=== PATIENT | male | born 1945 | race Caucasian/White ===

== ENCOUNTER 2023-06-17 12:38 | Emergency (ER) | payer MEDICARE, SELFPAY ==
[2023-06-17 12:40] VITALS: BP 170/80; PULSE 72; RESP 16; TEMP 36.8; O2SAT 97; BMI 20.9
--- NOTE | 2023-06-17 12:58 | HMH.EDGENADL ---
Discharge Plan Disposition Patient Disposition: Home, Self-Care Condition: Good Prescriptions Prescriptions: New amoxicillin-pot clavulanate 875-125 mg tablet 1 tab PO BID Qty: 20 0RF Referrals Follow up/Referrals: Provider,Referral, MD [Referring] - See instructions Activity Restrictions/Add. Instructions Additional Instructions/Restrictions: You were evaluated in the emergency department today. Please brick picker your prescription for antibiotics and take the full course of prescribed. Follow-up with your primary care provider over the next 48 hours for wound reassessment. Return to the emergency department for any new or worsening symptoms, such as fevers, chills, significant increase in redness and pain, or pus draining from the wound. Clinical Impressions Clinical Impression: Dog bite of right lower leg Qualifiers: Encounter type: initial encounter Qualified Code(s): S81.851A - Open bite, right lower leg, initial encounter Instructions Patient Instructions: DI for Dog Bite Discharge ED Provider: Maranda Raymond General Adult HPI General Chief complaint: Wound/Laceration Stated complaint: dog bite on Rt leg Time Seen by Provider: 06/17/23 12:42 History of Present Illness HPI narrative: This patient is a 77-year-old male presenting to the emergency department for evaluation with concern for a wound to his anterior right lower leg. He reports that he was playing with his dog a week and a half ago, kicking a milk jug around for him to caitlyn, when he accidentally hit the dog in the mouth with his right mondragon. He suffered a wound to the right mondragon from the dog's teeth. The wound has progressively turned more red and has been slow to heal, so he decided to admit to the emergency department for evaluation with concern that he may have an infection. He denies any fevers, chills, or other concerns. He is still ambulatory without difficulty and denies any numbness or tingling. Related Data Previous Rx's Medication Instructions Recorded amoxicillin 875 mg-potassium 1 tab PO BID #20 tabs 06/17/23 clavulanate 125 mg tablet Allergies Allergy/AdvReac Type Severity Reaction Status Date / Time No Known Allergies Allergy Verified 06/17/23 13:05 [facility] Disclaimer: The information contained in this section may have been updated after the patient was seen, as this information can be updated by other users. Social History Smoking Status: Current every day smoker alcohol intake: never current occupational status: retired Travel in the last 8 weeks: None ROS Obtained: Yes All systems reviewed & no additional complaints except as documented 14 point review of systems obtained and negative except as mentioned in HPI. Physical Exam General General appearance: alert and in no apparent distress Comment: Not ill-appearing Head Head exam: atraumatic and normocephalic Eye Eye exam: Present normal appearance, PERRL and EOMI ENT ENT exam: Present normal exam, normal oropharynx and mucous membranes moist Neck Neck exam: Present normal inspection, full ROM and trachea midline; Absent tenderness Chest Chest inspection: Present normal inspection and symmetric chest wall rise; Absent tenderness Respiratory Respiratory exam: Present normal lung sounds bilaterally; Absent respiratory distress or wheezes Cardiovascular Cardiovascular exam: Present regular rate and normal rhythm Abdominal Exam Abdominal exam: Present soft; Absent distention, tenderness or guarding Extremities Exam Extremities exam: Present full ROM and normal capillary refill; Absent tenderness or edema Back Exam Back exam: Present normal inspection and full ROM; Absent tenderness Neurological Exam Neurological exam: Present alert, oriented X3 and CN II-XII intact; Absent motor sensory deficit Psychiatric Psychiatric exam: Present normal affect and normal mood Skin Skin exam: Present warm
--- NOTE | 2023-06-17 13:08 | PC.NURSE ---
asked ER MD cevallos if blood cultures were need prior to antibiotic administration, states no.
[2023-06-17 13:14] VITALS: BP 162/70; PULSE 74; O2SAT 98
[2023-06-17 13:21] LABS: Basophils % 0.3 % (0.1-2.0); Eosinophils # 0.2 K/mm3 (0.0-0.4); Hematocrit 38.2 % (42.0-52.0); Hemoglobin 12.3 g/dL (14.1-18.0); Lymphocytes # 1.2 K/mm3 (0.7-4.5); Lymphocytes % 14.9 % (10-50); Mean Corpuscular HGB Conc 32.2 g/dL (31.8-35.4); Mean Corpuscular Volume 105.5 fl (80-94); Monocytes # 0.6 K/mm3 (0.1-1.0); Monocytes % 7.3 % (1.7-9.3); Neutrophils # 6.1 K/mm3 (1.8-7.8); Neutrophils % 75.5 % (37.0-80.0); Platelet Count 182 K/mm3 (142-424); Red Blood Count 3.62 M/mm3 (4.60-6.20); Red Cell Distribution Width 14.2 % (11.5-17.5); White Blood Count 8.1 K/mm3 (4.8-10.8)
[2023-06-17 13:30] VITALS: BP 143/66; PULSE 71; O2SAT 96
[2023-06-17 13:32] LABS: Anion Gap 11.5 mEq/L (5-15); Blood Urea Nitrogen 13 mg/dl (9-20); Calcium 9.3 mg/dl (8.4-10.2); Carbon Dioxide 25 mmol/L (22.0-30.0); Chloride 105 mmol/L (98-107); Creatinine Clearance Estimated 61 mL/min (50-200); Estimated Glomerular Filt Rate 73 ml/min (>60); GFR (African American) 88 ML/MIN (>60); Glucose 112 mg/dl (74-100); Potassium 4.5 mmoL/L (3.5-5.1); Sodium 137 mmol/L (136-145)
[2023-06-17 14:12] VITALS: BP 134/80; PULSE 86; RESP 16; TEMP 36.6; O2SAT 96
== END 2023-06-17 14:16 | disposition home or self-care (01) ==
PROVIDERS: Emergency Provider Emergency Medicine; PCP Internal Medicine
DX: S81.851A Open bite, right lower leg, initial encounter (principal); W54.8XXA Other contact with dog, initial encounter; F17.200 Nicotine dependence, unspecified, uncomplicated
CPT/HCPCS: 80048; 85025; 96374; 99284

== ENCOUNTER 2024-11-07 12:24 | Emergency (ER) | payer MEDICARE, OTHER, SELFPAY ==
[2024-11-07 12:25] VITALS: BP 185/99; PULSE 68; RESP 18; TEMP 36.7; O2SAT 98; BMI 21.9
[2024-11-07 12:32] VITALS: BP 185/99; PULSE 67; O2SAT 99
--- NOTE | 2024-11-07 12:34 | ED_ITS ---
<Statement entered by Rajendra Silver MD - 11/07/24 15:05> I was consulted by the MARIELA, and we discussed the complexity of the problems being addressed. I approved the treatment and management plan for this patient's care in the emergency department, thus performing a substantive portion of the medical decision making. Rajendra Silver MD, GUERO, FACEP Discharge Plan Disposition Patient Disposition: Home, Self-Care Condition: Good Prescriptions Prescriptions: No Action amoxicillin-pot clavulanate 875-125 mg tablet 1 tab PO BID Qty: 20 0RF Referrals Follow up/Referrals: Marilee Burrell MD [Primary Care Provider] - See instructions Piper Nicole DPM [Staff Physician] - See instructions (onychomycosis) Activity Restrictions/Add. Instructions Additional Instructions/Restrictions: As we discussed please leave the bandage in place for 24 hours. If you notice bleeding you can take the bandage down and reapply the clotting agent that I gave you. I have referred you to podiatry. Please call tomorrow to make your appointment. For any change or worsening of your symptoms follow-up with your PCP or return to the ER as needed. Clinical Impressions Clinical Impression: Avulsion of toenail of left foot Instructions Patient Instructions: DI for Laceration Repair Print Language Print Language: [place] Discharge ED Provider: Rajendra Silver General Adult HPI General Chief complaint: Wound/Laceration Stated complaint: AO 11/04, right foot lac Time Seen by Provider: 11/07/24 12:29 History of Present Illness HPI narrative: Patient presents for evaluation of a left great toe nailbed injury. Patient has significantly thickened toenails. He was cutting his right hallux nail with wire cutters last Friday and he got into the matrix of the nailbed. It has been bleeding ever since despite efforts. Patient is on Plavix. He denies any numbness or tingling redness swelling or pain Related Data Previous Rx's ?Medication ?Instructions ?Recorded amoxicillin 875 mg-potassium 1 tab PO BID #20 tabs 06/17/23 clavulanate 125 mg tablet Allergies Allergy/AdvReac Type Severity Reaction Status Date / Time No Known Allergies Allergy Verified 06/17/23 13:05 [facility] Disclaimer: The information contained in this section may have been updated after the patient was seen, as this information can be updated by other users. Social History (Updated 06/17/23 @ 16:01 by Maranda Raymond DO) Smoking Status: Current every day smoker alcohol intake: never current occupational status: retired Travel in the last 8 weeks: None Have you lived/traveled outside [place] in past 30 days?: No Contact w/someone who lives/traveled outside [place] past 30 days?: No Exposure to someone with infectious disease in past 14 days?: No Do you have a fever (greater than 100.4 F or 38 C)?: No Have you tested positive for COVID-19: No Exposed to someone with COVID-19 in past 14 days?: No Do you have a sore throat?: No Do you have a cough?: No Do you have any weakness?: No Do you have any diarrhea?: No Are you experiencing any unusual bleeding?: No Do you have any muscle aches/pain?: No Do you have any abdominal pain?: No Are you experiencing loss of taste or smell?: No ROS Obtained: Yes Systems reviewed as appropriate & no additional complaints except as documented Physical Exam General General appearance: alert and in no apparent distress Respiratory Respiratory exam: Present normal lung sounds bilaterally Cardiovascular Cardiovascular exam: Present regular rate Neurological Exam Neurological exam: Present alert and oriented X3 Medical Decision Making Medical Records Screening: Per USPSTF and CDC recommendations, given the prevalence of disease in our region, it is our hospital?s policy to screen for HIV and viral Hepatitis for all patients aged 18 and over and those with ongoing risk factors. Kyle Inquiry Pt receiving controlled substance: No Vital Signs: 11/07/24 12:25 11/07/24 12:32 Temperature 98.0 F Temperature Source Oral Pulse Rate 67 Pulse Rate [Radial] 68 Respiratory Rate 18 Blood Pressure 185/99 H Blood Pressure [Right Arm] 185/99 H Blood Pressure Mean [Right Arm] 127 Blood Pressure Source [Right Arm] Automatic Cuff Blood Pressure Position [Right Arm] Sitting 02 Sat by Pulse Oximetry 98 99 Oxygen Delivery Method Room Air Room Air Orders (Tests/Meds): ED MEDICATIONS Discontinued Medications Generic Name Dose Route Start Last Admin Trade Name Freq PRN Reason Stop Dose Admin Silver Nitrate 1 each 11/07/24 12:45 11/07/24 13:22 Silver Nitrate Applicator TP 11/07/24 12:46 1 each ONCE ONE Administration Medical Decision Narrative: In summary patient is a 79-year-old male who presents to the emergency department for evaluation of right hallux nailbed injury. Patient is hemodynamically stable upon arrival, afebrile. Physical exam is remarkable for a venous ooze right in the middle of the exposed nailbed matrix. Differential diagnosis could include arterial versus venous however there are no red flags to suggest otherwise including no pulsatile bleeding.. Initial workup was considered however it is very superficial thus no further workup is necessary. Initial intervention is to clean the affected area prior to cautery. Given that I personally cauterized the small bleeding vessel with silver nitrate. Hemostasis was achieved. Reassessment 15 minutes later shows that it is still hemostatic. Patient was able to bear weight without rebleed. Given that I placed Surgicel over the area and then protectively bandaged it. Given that patient is appropriate for discharge with referral to podiatry for ongoing management strict return precautions. Critical Care Critical Care Time Critical Care Time: No
[2024-11-07] MEDS: SILVER NITRATE APPLICATOR 1 EACH TP (13:22)
[2024-11-07 13:26] VITALS: BP 149/88; PULSE 88; RESP 18; TEMP 36.7; O2SAT 100
== END 2024-11-07 13:26 | disposition home or self-care (01) ==
PROVIDERS: Emergency Provider Student in an Organized Health Care Education/Training Program; PCP Internal Medicine
DX: S91.202A Unspecified open wound of left great toe with damage to nail, initial encounter (principal); M79.675 Pain in left toe(s); W45.8XXA Other foreign body or object entering through skin, initial encounter; Y93.89 Activity, other specified; Y92.9 Unspecified place or not applicable
CPT/HCPCS: 99283

== ENCOUNTER 2025-01-28 15:06 | Emergency (ER) | payer MEDICARE, OTHER, SELFPAY ==
[2025-01-28] VITALS (14 sets, daily range): BP systolic 122–178; BP diastolic 67–100; PULSE 64–127; RESP 14–22; TEMP 36.6; O2SAT 92–100; BMI 22.3
--- NOTE | 2025-01-28 15:15 | HMH.EDCP ---
Discharge Plan Disposition Patient Disposition: Xfer Short-Term Hosp Condition: Fair Prescriptions Prescriptions: No Action amoxicillin-pot clavulanate 875-125 mg tablet 1 tab PO BID Qty: 20 0RF Referrals Follow up/Referrals: Provider,Referral, [Primary Care Provider] - See instructions Clinical Impressions Clinical Impression: Atrial fibrillation with rapid ventricular response Acute exacerbation of CHF (congestive heart failure) Qualifiers: Heart failure type: unspecified Qualified Code(s): I50.9 - Heart failure, unspecified Urinary tract infectious disease Qualifiers: Urinary tract infection type: site unspecified Hematuria presence: with hematuria Qualified Code(s): N39.0 - Urinary tract infection, site not specified Stand Alone Forms Stand Alone Forms: Transfer Record - ED Print Language Print Language: Sinhala Discharge ED Provider: Myron Engel HPI <LULY Rodriguez - Last Filed: 01/28/25 20:32> General Chief Complaint: Shortness of Breath/Dyspnea Stated Complaint: Chest Pain/SOA, Afib RVR Time Seen by Provider: 01/28/25 15:15 History of Present Illness HPI narrative: Patient presents for evaluation of shortness of breath along with chest pain. Patient gives a 3-day history of increasing dyspnea and today began having chest pain. Chest pain is diffuse but does not radiate. Patient does have a history of known atrial fibrillation however we do not have a medication list and patient does not know what. [facility] He reportedly states that he is on a blood thinner but is not sure the name. Patient [place] fever chills hemoptysis hematochezia melena nausea vomit diarrhea. Related Data Previous Rx's ?Medication ?Instructions ?Recorded amoxicillin 875 mg-potassium 1 tab PO BID #20 tabs 06/17/23 clavulanate 125 mg tablet Allergies Allergy/AdvReac Type Severity Reaction Status Date / Time No Known Allergies Allergy Verified 06/17/23 13:05 PFSH <LULY Rodriguez - Last Filed: 01/28/25 20:32> PFS Disclaimer: The information contained in this section may have been updated after the patient was seen, as this information can be updated by other users. Social History (Updated 06/17/23 @ 16:01 by Maranda Raymond DO) Smoking Status: Never smoker alcohol intake: never current occupational status: retired Travel in the last 8 weeks: None Have you lived/traveled outside US in past 30 days?: No Contact w/someone who lives/traveled outside US past 30 days?: No Exposure to someone with infectious disease in past 14 days?: No Do you have a fever (greater than 100.4 F or 38 C)?: No Have you tested positive for COVID-19: No Exposed to someone with COVID-19 in past 14 days?: No Do you have a sore throat?: No Do you have a cough?: No Do you have any weakness?: No Do you have any diarrhea?: No Are you experiencing any unusual bleeding?: No Do you have any muscle aches/pain?: No Do you have any abdominal pain?: No Are you experiencing loss of taste or smell?: No <LULY Rodriguez - Last Filed: 01/28/25 20:32> ROS Obtained: Yes Systems reviewed as appropriate & no additional complaints except as documented Physical Exam <LULY Rodriguez - Last Filed: 01/28/25 20:32> General General appearance: alert and in no apparent distress Respiratory Respiratory exam: Absent normal lung sounds bilaterally (Patient has diminished breath sounds at the bases has Rales in the bilateral lower lung kirby no accessory muscle use or increased work of breathing) Cardiovascular Cardiovascular exam: Present tachycardia and irregular rhythm Neurological Exam Neurological exam: Present alert and oriented X3 HEART Score <LULY Rodriguez - Last Filed: 01/28/25 20:32> HEART Score HEART Score assessment performed?: Yes History (anamnesis): Moderately suspicious ECG: Non-specific disturbance Age: >65 years Risk factors: Atherosclerosis history Troponin: </= normal limit HEART Score: 6 <Myron Engel MD - Last Filed: 01/28/25 23:35> HEART Score HEART Score: 6 Critical Care <LULY Rodriguez - Last Filed: 01/28/25 20:32> Critical Care Time Critical Care Time: Yes Attestation: On 01/28/25, the high probability of a clinically significant, sudden or life threatening deterioration of the following system(s) required my full and direct attention, intervention and personal management. The time I documented below is in addition to time spent performing reported procedures but includes the following listed in this critical care notation. Total Time Total Critical Care Time: 35 Medical Decision Making <LULY Rodriguez - Last Filed: 01/28/25 20:32> Medical Records Medical records reviewed: Yes I reviewed the patient's medical records. Kyle Inquiry Pt receiving controlled substance: No Vital Signs Vital Signs: 01/28/25 15:10 01/28/25 15:30 01/28/25 15:40 Temperature 97.9 F Temperature Source Oral Pulse Rate 107 H 65 Pulse Rate [Left Radial] 127 H Respiratory Rate 20 19 22 Blood Pressure 163/95 H 122/67 Blood Pressure [Right Arm] 160/96 H Blood Pressure Mean 104 93 Blood Pressure Mean [Right Arm] 117 Blood Pressure Source Blood Pressure Source [Right Arm] Automatic Cuff Blood Pressure Position Blood Pressure Position [Right Arm] Sitting 02 Sat by Pulse Oximetry 100 98 96 Oxygen Delivery Method Room Air 01/28/25 16:06 01/28/25 16:31 01/28/25 17:00 Temperature Temperature Source Pulse Rate 64 64 69 Pulse Rate [Left Radial] Respiratory Rate 18 18 18 Blood Pressure 138/83 145/77 H 146/80 H Blood Pressure [Right Arm] Blood Pressure Mean 100 96 88 Blood Pressure Mean [Right Arm] Blood Pressure Source Blood Pressure Source [Right Arm] Blood Pressure Position Blood Pressure Position [Right Arm] 02 Sat by Pulse Oximetry 92 L 92 L 93 L Oxygen Delivery Method 01/28/25 17:30 01/28/25 18:01 01/28/25 19:00 Temperature Temperature Source Pulse Rate 68 84 Pulse Rate [Left Radial] Respiratory Rate 16 16 14 Blood Pressure 157/87 H 164/92 H 159/99 H Blood Pressure [Right Arm] Blood Pressure Mean 94 116 Blood Pressure Mean [Right Arm] Blood Pressure Source Blood Pressure Source [Right Arm] Blood Pressure Position Blood Pressure Position [Right Arm] 02 Sat by Pulse Oximetry 97 97 Oxygen Delivery Method 01/28/25 19:24 01/28/25 20:00 01/28/25 20:30 Temperature Temperature Source Pulse Rate Pulse Rate [Left Radial] Respiratory Rate 16 Blood Pressure 174/100 H 161/83 H 147/91 H Blood Pressure [Right Arm] Blood Pressure Mean 112 120 Blood Pressure Mean [Right Arm] Blood Pressure Source Blood Pressure Source [Right Arm] Blood Pressure Position Blood Pressure Position [Right Arm] 02 Sat by Pulse Oximetry Oxygen Delivery Method 01/28/25 21:00 01/28/25 21:55 Temperature 97.9 F Temperature Source Oral Pulse Rate 113 H Pulse Rate [Left Radial] Respiratory Rate 16 Blood Pressure 171/96 H 178/100 H Blood Pressure [Right Arm] Blood Pressure Mean 121 Blood Pressure Mean [Right Arm] Blood Pressure Source Automatic Cuff Blood Pressure Source [Right Arm] Blood Pressure Position Supine Blood Pressure Position [Right Arm] 02 Sat by Pulse Oximetry Oxygen Delivery Method Room Air Lab Data Lab results reviewed: Yes I reviewed the patient's lab results. Labs: Lab Results 01/28/25 15:15: WBC 7.8, RBC 3.38 L, Hgb 11.9 L, Hct 36.4 L, MCV 107.7 H, MCH 35.2 H, MCHC 32.7, RDW 18.2 H, Plt Count 170, MPV 11.1 H, Neut % (Auto) 83.7 H, Lymph % (Auto) 8.5 L, [place] % (Auto) 6.8, Eos % (Auto) 0.1, Baso % (Auto) 0.1, Neut # (Auto) 6.5, Lymph # (Auto) 0.7, [place] # (Auto) 0.5, Eos # (Auto) 0.0, Baso # (Auto) 0.0, Sodium 135 L, Potassium 4.5, Chloride 101, Carbon Dioxide 26, Anion Gap 12.5, BUN 17, Creatinine 0.90, Estimated Creat Clear 64, Estimated GFR 82, Est GFR ( Amer) 99, Glucose 127 H, Calcium 9.2, Magnesium 1.7, Total Bilirubin 1.4 H, AST 43, ALT 43, Alkaline Phosphatase 174 H, Troponin I < 0.01, NT-Pro-B Natriuret Pep 9180 H, Total Protein 7.3, Albumin 4.0, Globulin 3.3 H, Albumin/Globulin Ratio 1.2, TSH 1.44, Free T4 Index 2.9 L, Thyroxine (T4) 5.5 L, T3 Uptake 52 H 01/28/25 15:33: SARS-CoV-2 (PCR) Not detected, Influenza A Untype (PCR) Not detected, Influenza Type B (PCR) Not detected 01/28/25 17:51: Urine Color Yellow, Urine Appearance Cloudy, Urine pH 6.0, Ur Specific [place] >= 1.030, Urine Protein 2+ A, Urine Glucose (UA) Negative, Urine Ketones Negative, Urine Blood 2+ A, Urine Nitrate Negative, Urine Bilirubin Negative, Urine Urobilinogen 1.0, Ur Leukocyte Esterase Trace, Urine RBC 5-10, Urine WBC Tntc, Ur Squamous Epith Cells 3-5, Urine Bacteria 4+ 01/28/25 18:20: Troponin I 0.02 01/28/25 15:15 01/28/25 15:15 Response Orders (Tests/Meds): ED MEDICATIONS Discontinued Medications Generic Name Dose Route Start Last Admin Trade Name Hemantq PRN Reason Stop Dose Admin Acetaminophen 1,000 mg 01/28/25 15:22 01/28/25 15:31 Acetaminophen 500mg Tab PO 01/28/25 15:23 1,000 mg ONCE ONE Administration Diltiazem HCl 20 mg 01/28/25 15:22 01/28/25 15:29 Diltiazem 25mg/5ml Vial IV 01/28/25 15:23 20 mg ONCE ONE Administration Furosemide 80 mg 01/28/25 17:05 01/28/25 17:07 Furosemide 40mg/4ml Vial IV 01/28/25 17:06 80 mg ONCE ONE Administration Magnesium Sulfate 2 gm in 50 mls @ 50 mls/hr 01/28/25 15:22 01/28/25 15:32 Magnesium Sulfate 2gm/50ml Premix IV 01/28/25 16:21 50 mls/hr ONCE ONE Administration Ceftriaxone Sodium 1 gm/ 50 mls @ 100 mls/hr 01/28/25 18:45 01/28/25 18:44 Sodium Chloride IV 02/07/25 18:44 100 mls/hr Q24H CHRIS Administration Ondansetron HCl 4 mg 01/28/25 15:22 01/28/25 15:32 Ondansetron 4mg/2ml Vial IV 01/28/25 15:23 4 mg ONCE ONE Administration ORDERS Category Date Time Status XR chest portable Stat Exams 01/28/25 16:23 Completed BNP [NT Pro Brain Natriuretic Pep.] Stat Lab 01/28/25 15:15 Completed CBC w/Auto Diff [Complete Blood Count Auto Diff] Stat Lab 01/28/25 15:15 Completed CMP [Comprehensive Metabolic Panel] Stat Lab 01/28/25 15:15 Completed Magnesium Stat Lab 01/28/25 15:15 Completed Rapid PCR Covid and Flu A/B Stat Lab 01/28/25 15:33 Completed Thyroid Panel Stat Lab 01/28/25 15:15 Completed Trop I [Troponin I] Stat Lab 01/28/25 15:15 Completed Troponin I Q3H Lab 01/28/25 18:20 Completed UA [Urinalysis and Microscopic] Stat Lab 01/28/25 17:51 Completed Urine Culture Stat Micro 01/28/25 17:51 Received MDM Narrative Medical Decision Narrative: In summary patient is a 79-year-old male who presents to the emergency department for evaluation of chest pain and dyspnea. Patient is initially high per tensive at 160/96 with a heart rate of 127 and what appears to be atrial fibrillation with rapid ventricular response on the bedside monitor breathing 20 times a minute satting at 100% room air upon arrival, afebrile at 97.9. Physical exam is remarkable for bilateral Rales in the lower lung kirby with no increased work of breathing or accessory muscle use. Heart rate is rapid irregularly irregular patient has no dependent edema noted. Abdomen soft nontender no rebound or guarding no rigidity. There is no reproducible chest pain on palpation.. Differential diagnosis includes ACS versus A-fib RVR versus CHF versus pneumonia etc. Initial workup will be conducted with hematologic labs twelve-lead EKG plain film chest x-ray respiratory swabs. Initial interventions include 20 mg IV push Cardizem. Initial workup reviewed by me shows that his hematologic labs are significant for a undetectable troponin and NT proBNP of 9180 TSH 1.44 urinalysis that shows 2+ protein 2+ of blood and microscopic exam shows 5-10 red cells too numerous to count white cells 4+ bacteria consistent with urinary tract infection. My informal interpretation of his plain film chest x-ray shows cardiomegaly and evidence of pulmonary edema suggestive of CHF. Patient is now still in A-fib but rate controlled at 84 and I have given the patient a dose of Rocephin for his urinary tract infection. Given this I have reviewed her records here and we have no previous information including echo and [facility] I asked the patient whether not he wished to transfer there patient initially declined. Given that spoke to our hospitalist here regarding patient BAILEY and management and we do not have cardiology backup over the weekend and have no ability to get echo. I then had an interactive shared decision making discussion with the patient regarding his symptoms findings and my recommendation and recommended the patient be transferred to the [facility] for further workup since all of his records are there. Patient was initially reluctant but eventually agreed. Given that I had interactive discussion with Dr. Eng at the [facility] regarding patient BAILEY findings and patient management and he has been accepted for further evaluation and care. <Myron Engel MD - Last Filed: 01/28/25 23:35> Vital Signs Vital Signs: 01/28/25 15:10 01/28/25 15:30 01/28/25 15:40 Temperature 97.9 F Temperature Source Oral Pulse Rate 107 H 65 Pulse Rate [Left Radial] 127 H Respiratory Rate 20 19 22 Blood Pressure 163/95 H 122/67 Blood Pressure [Right Arm] 160/96 H Blood Pressure Mean 104 93 Blood Pressure Mean [Right Arm] 117 Blood Pressure Source Blood Pressure Source [Right Arm] Automatic Cuff Blood Pressure Position Blood Pressure Position [Right Arm] Sitting 02 Sat by Pulse Oximetry 100 98 96 Oxygen Delivery Method Room Air 01/28/25 16:06 01/28/25 16:31 01/28/25 17:00 Temperature Temperature Source Pulse Rate 64 64 69 Pulse Rate [Left Radial] Respiratory Rate 18 18 18 Blood Pressure 138/83 145/77 H 146/80 H Blood Pressure [Right Arm] Blood Pressure Mean 100 96 88 Blood Pressure Mean [Right Arm] Blood Pressure Source Blood Pressure Source [Right Arm] Blood Pressure Position Blood Pressure Position [Right Arm] 02 Sat by Pulse Oximetry 92 L 92 L 93 L Oxygen Delivery Method 01/28/25 17:30 01/28/25 18:01 01/28/25 19:00 Temperature Temperature Source Pulse Rate 68 84 Pulse Rate [Left Radial] Respiratory Rate 16 16 14 Blood Pressure 157/87 H 164/92 H 159/99 H Blood Pressure [Right Arm] Blood Pressure Mean 94 116 Blood Pressure Mean [Right Arm] Blood Pressure Source Blood Pressure Source [Right Arm] Blood Pressure Position Blood Pressure Position [Right Arm] 02 Sat by Pulse Oximetry 97 97 Oxygen Delivery Method 01/28/25 19:24 01/28/25 20:00 01/28/25 20:30 Temperature Temperature Source Pulse Rate Pulse Rate [Left Radial] Respiratory Rate 16 Blood Pressure 174/100 H 161/83 H 147/91 H Blood Pressure [Right Arm] Blood Pressure Mean 112 120 Blood Pressure Mean [Right Arm] Blood Pressure Source Blood Pressure Source [Right Arm] Blood Pressure Position Blood Pressure Position [Right Arm] 02 Sat by Pulse Oximetry Oxygen Delivery Method 01/28/25 21:00 01/28/25 21:55 Temperature 97.9 F Temperature Source Oral Pulse Rate 113 H Pulse Rate [Left Radial] Respiratory Rate 16 Blood Pressure 171/96 H 178/100 H Blood Pressure [Right Arm] Blood Pressure Mean 121 Blood Pressure Mean [Right Arm] Blood Pressure Source Automatic Cuff Blood Pressure Source [Right Arm] Blood Pressure Position Supine Blood Pressure Position [Right Arm] 02 Sat by Pulse Oximetry Oxygen Delivery Method Room Air Lab Data Labs: Lab Results 01/28/25 15:15: WBC 7.8, RBC 3.38 L, Hgb 11.9 L, Hct 36.4 L, MCV 107.7 H, MCH 35.2 H, MCHC 32.7, RDW 18.2 H, Plt Count 170, MPV 11.1 H, Neut % (Auto) 83.7 H, Lymph % (Auto) 8.5 L, [place] % (Auto) 6.8, Eos % (Auto) 0.1, Baso % (Auto) 0.1, Neut # (Auto) 6.5, Lymph # (Auto) 0.7, [place] # (Auto) 0.5, Eos # (Auto) 0.0, Baso # (Auto) 0.0, Sodium 135 L, Potassium 4.5, Chloride 101, Carbon Dioxide 26, Anion Gap 12.5, BUN 17, Creatinine 0.90, Estimated Creat Clear 64, Estimated GFR 82, Est GFR ( Amer) 99, Glucose 127 H, Calcium 9.2, Magnesium 1.7, Total Bilirubin 1.4 H, AST 43, ALT 43, Alkaline Phosphatase 174 H, Troponin I < 0.01, NT-Pro-B Natriuret Pep 9180 H, Total Protein 7.3, Albumin 4.0, Globulin 3.3 H, Albumin/Globulin Ratio 1.2, TSH 1.44, Free T4 Index 2.9 L, Thyroxine (T4) 5.5 L, T3 Uptake 52 H 01/28/25 15:33: SARS-CoV-2 (PCR) Not detected, Influenza A Untype (PCR) Not detected, Influenza Type B (PCR) Not detected 01/28/25 17:51: Urine Color Yellow, Urine Appearance Cloudy, Urine pH 6.0, Ur Specific [place] >= 1.030, Urine Protein 2+ A, Urine Glucose (UA) Negative, Urine Ketones Negative, Urine Blood 2+ A, Urine Nitrate Negative, Urine Bilirubin Negative, Urine Urobilinogen 1.0, Ur Leukocyte Esterase Trace, Urine RBC 5-10, Urine WBC Tntc, Ur Squamous Epith Cells 3-5, Urine Bacteria 4+ 01/28/25 18:20: Troponin I 0.02 Response Orders (Tests/Meds): ED MEDICATIONS Discontinued Medications Generic Name Dose Route Start Last Admin Trade Name Freq PRN Reason Stop Dose Admin Acetaminophen 1,000 mg 01/28/25 15:22 01/28/25 15:31 Acetaminophen 500mg Tab PO 01/28/25 15:23 1,000 mg ONCE ONE Administration Diltiazem HCl 20 mg 01/28/25 15:22 01/28/25 15:29 Diltiazem 25mg/5ml Vial IV 01/28/25 15:23 20 mg ONCE ONE Administration Furosemide 80 mg 01/28/25 17:05 01/28/25 17:07 Furosemide 40mg/4ml Vial IV 01/28/25 17:06 80 mg ONCE ONE Administration Magnesium Sulfate 2 gm in 50 mls @ 50 mls/hr 01/28/25 15:22 01/28/25 15:32 Magnesium Sulfate 2gm/50ml Premix IV 01/28/25 16:21 50 mls/hr ONCE ONE Administration Ceftriaxone Sodium 1 gm/ 50 mls @ 100 mls/hr 01/28/25 18:45 01/28/25 18:44 Sodium Chloride IV 02/07/25 18:44 100 mls/hr Q24H CHRIS Administration Ondansetron HCl 4 mg 01/28/25 15:22 01/28/25 15:32 Ondansetron 4mg/2ml Vial IV 01/28/25 15:23 4 mg ONCE ONE Administration ORDERS Category Date Time Status XR chest portable Stat Exams 01/28/25 16:23 Completed BNP [NT Pro Brain Natriuretic Pep.] Stat Lab 01/28/25 15:15 Completed CBC w/Auto Diff [Complete Blood Count Auto Diff] Stat Lab 01/28/25 15:15 Completed CMP [Comprehensive Metabolic Panel] Stat Lab 01/28/25 15:15 Completed Magnesium Stat Lab 01/28/25 15:15 Completed Rapid PCR Covid and Flu A/B Stat Lab 01/28/25 15:33 Completed Thyroid Panel Stat Lab 01/28/25 15:15 Completed Trop I [Troponin I] Stat Lab 01/28/25 15:15 Completed Troponin I Q3H Lab 01/28/25 18:20 Completed UA [Urinalysis and Microscopic] Stat Lab 01/28/25 17:51 Completed Urine Culture Stat Micro 01/28/25 17:51 Received ECG Data Tracing #1: Attestation: I reviewed this ECG and interpreted as documented below: (A-fib with RVR 109 bpm with QRS 94, QTc 420. Rightward leaning axis. No obvious acute ST elevations, but wandering baseline difficult to appreciate subtle changes. Does appear to have ST depressions in lateral and inferior leads with no reciprocal change) MDM Narrative Medical Decision Narrative: In summary patient is a 79-year-old male who presents to the emergency department for evaluation of chest pain and dyspnea. Patient is initially high per tensive at 160/96 with a heart rate of 127 and what appears to be atrial fibrillation with rapid ventricular response on the bedside monitor breathing 20 times a minute satting at 100% room air upon arrival, afebrile at 97.9. Physical exam is remarkable for bilateral Rales in the lower lung kirby with no increased work of breathing or accessory muscle use. Heart rate is rapid irregularly irregular patient has no dependent edema noted. Abdomen soft nontender no rebound or guarding no rigidity. There is no reproducible chest pain on palpation.. Differential diagnosis includes ACS versus A-fib RVR versus CHF versus pneumonia etc. Initial workup will be conducted with hematologic labs twelve-lead EKG plain film chest x-ray respiratory swabs. Initial interventions include 20 mg IV push Cardizem. Initial workup reviewed by me shows that his hematologic labs are significant for a undetectable troponin and NT proBNP of 9180 TSH 1.44 urinalysis that shows 2+ protein 2+ of blood and microscopic exam shows 5-10 red cells too numerous to count white cells 4+ bacteria consistent with urinary tract infection. My informal interpretation of his plain film chest x-ray shows cardiomegaly and evidence of pulmonary edema suggestive of CHF. Patient is now still in A-fib but rate controlled at 84 and I have given the patient a dose of Rocephin for his urinary tract infection. Given this I have reviewed her records here and we have no previous information including echo and [facility] I asked the patient whether not he wished to transfer there patient initially declined. Given that spoke to our hospitalist here regarding patient BAILEY and management and we do not have cardiology backup over the weekend and have no ability to get echo. I then had an interactive shared decision making discussion with the patient regarding his symptoms findings and my recommendation and recommended the [facility] since all of [facility]. Patient was initially reluctant but eventually agreed. Given that I had interactive discussion with Dr. Eng at the [facility] regarding patient BAILEY findings and patient management and he has been accepted for further evaluation and care. I was consulted by the MARIELA, and we discussed the complexity of the problems being addressed. I approved the treatment and management plan for this patient's care in the Emergency Department, thus performing a substantive portion of the medical decision making. Myron Engel MD
--- NOTE | 2025-01-28 15:19 | ECG_ITS ---
APPROVED REPORT Exam: Resting ECG HR:109 bpm ECG Measurements Heart Rate 109 AXES QRSd 94 QRS 91 QT 356 T 197 QTc 420 Conclusion A-fib with RVR Right axis deviation Lateral and inferior ST depressions and T wave inversions No reciprocal elevations Electronically signed by : VIOLETA BUCKNER, 01/29/2025 00:01:14
[2025-01-28] MEDS: dilTIAZem 25MG/5ML VIAL 20 MG IV (15:29)
[2025-01-28] MEDS: ACETAMINOPHEN 500MG TAB 1000 MG PO (15:31)
[2025-01-28] MEDS: ONDANSETRON 4MG/2ML VIAL 4 MG IV (15:32)
[2025-01-28] MEDS: MAGNESIUM SULFATE IN WATER 2 GM/50 ML PIGGYBACK IV (15:32)
[2025-01-28 15:33] LABS: Basophils % 0.1 % (0.1-2.0); Eosinophils % 0.1 % (0.1-12.0); Hematocrit 36.4 % (42.0-52.0); Hemoglobin 11.9 g/dL (14.1-18.0); Lymphocytes # 0.7 K/mm3 (0.7-4.5); Lymphocytes % 8.5 % (10-50); Mean Corpuscular HGB Conc 32.7 g/dL (31.8-35.4); Mean Corpuscular Hemoglobin 35.2 pg (27.0-31.2); Mean Corpuscular Volume 107.7 fl (80-94); Mean Platelet Volume 11.1 fl (7.4-10.4); Monocytes # 0.5 K/mm3 (0.1-1.0); Monocytes % 6.8 % (1.7-9.3); Neutrophils # 6.5 K/mm3 (1.8-7.8); Neutrophils % 83.7 % (37.0-80.0); Platelet Count 170 K/mm3 (142-424); Red Blood Count 3.38 M/mm3 (4.60-6.20); Red Cell Distribution Width 18.2 % (11.5-17.5); White Blood Count 7.8 K/mm3 (4.8-10.8)
[2025-01-28 15:36] LABS: Chloride 101 mmol/L (98-107)
[2025-01-28 15:37] LABS: Potassium 4.5 mmoL/L (3.5-5.1); Sodium 135 mmol/L (136-145)
[2025-01-28 15:38] LABS: Coronavirus 19, PCR Not Detected (NotDetected); Influenza A, PCR Not Detected (NotDetected); Influenza B, PCR Not Detected (NotDetected)
[2025-01-28 15:39] LABS: Anion Gap 12.5 mEq/L (5-15); Blood Urea Nitrogen 17 mg/dl (9-20); Carbon Dioxide 26 mmol/L (22.0-30.0); Creatinine Clearance Estimated 64 mL/min (50-200); Estimated Glomerular Filt Rate 82 ml/min (>60); GFR (African American) 99 ML/MIN (>60)
[2025-01-28 15:40] LABS: Alanine Aminotransferase 43 U/L (12-78); Albumin/Globulin Ratio 1.2 (1.1-1.8); Alkaline Phosphatase 174 U/L (38-126); Aspartate Amino Transferase 43 U/L (17-59); Bilirubin,Total 1.4 mg/dl (0.2-1.3); Calcium 9.2 mg/dl (8.4-10.2); Globulin 3.3 g/dL (1.3-3.2); Glucose 127 mg/dl (74-100); Magnesium 1.7 mg/dl (1.6-2.3); Total Protein,Serum 7.3 g/dl (6.3-8.2)
[2025-01-28 15:51] LABS: Troponin I < 0.01 ng/ml (0.00-0.034)
[2025-01-28 16:23] LABS: Triiodothryronine (T3) Uptake 52 % (23.5-40.5)
--- NOTE | 2025-01-28 16:23 | XR_ITS ---
PROCEDURE INFORMATION: Exam: XR Chest Exam date and time: 01/28/2025 4:32 PM Age: 79 years old Clinical indication: Dyspnea; Additional info: Dyspnea, a-fib rvr TECHNIQUE: Imaging protocol: Radiologic exam of the chest. Views: 1 view. COMPARISON: No relevant prior studies available. FINDINGS: Lungs: Consolidation in the right lower lobe. Hazy perihilar opacities bilaterally. Pulmonary vascular congestion. Elevated right hemidiaphragm. Pleural spaces: No pleural effusion. No pneumothorax. Heart/Mediastinum: Heart is enlarged. Bones/joints: No fractures or bone lesions. IMPRESSION: 1. Cardiomegaly and congestive heart failure. 2. Right lower lobe consolidation could be due to atelectasis or pneumonia.
[2025-01-28 16:24] LABS: Free Thyroxine Index 2.9 ug/dL (5.93-13.13); T4 (Thyroxine) 5.5 ug/dl (5.53-11.0)
--- NOTE | 2025-01-28 16:32 | PC.NURSE ---
portable chest xray at bedside
--- NOTE | 2025-01-28 16:34 | PC.NURSE ---
XR AT BEDSIDE
[2025-01-28 16:38] LABS: Thyroid Stimulating Hormone 1.44 uIU/mL (0.465-4.68)
[2025-01-28] MEDS: FUROSEMIDE 40MG/4ML VIAL 80 MG IV (17:07)
--- NOTE | 2025-01-28 17:07 | PC.NURSE ---
GERONIMO SPEAKING WITH DR WEST FOR ADMISSION
--- NOTE | 2025-01-28 17:08 | PC.NURSE ---
stacia is speaking to dr sosa at this time
--- NOTE | 2025-01-28 17:11 | PC.NURSE ---
calling [facility] at [facility] time.
[2025-01-28 17:43] LABS: NT Pro Brain Natriuretic Pep. 9180 pg/mL (0-450)
[2025-01-28 17:56] LABS: Microscopic, Urine URINE MICROSCOPIC (MICROSCOPIC)
[2025-01-28 17:57] LABS: Appearance,Urine Cloudy (Clear); Bilirubin,Urine Negative (Negative); Blood, Urine 2+ (Negative); Color,Urine YELLOW (Yellow); Glucose,Urine (UA) Negative (Negative); Ketones,Urine Negative (Negative); Leukocyte Esterase,Urine TRACE (Negative); Nitrate,Urine Negative (Negative); Protein,Urine 2+ (Negative); Specific Gravity, Urine >= 1.030 (1.005-1.030)
--- NOTE | 2025-01-28 18:03 | PC.NURSE ---
[facility]ed [facility] back to advise [facility] of the abnormal [facility].
[2025-01-28 18:22] LABS: WBC,Urine TNTC #/hpf (0-3)
[2025-01-28 18:23] LABS: Bacteria,Urine 4+ /lpf
[2025-01-28] MEDS: CEFTRIAXONE 1 GM 1 GM in 0.9 % SODIUM CHLORIDE 50 ML IV (18:44)
[2025-01-28 19:04] LABS: Troponin I 0.02 ng/ml (0.00-0.034)
--- NOTE | 2025-01-28 19:19 | PC.NURSE ---
400 ml of urine passed by patient.
--- NOTE | 2025-01-28 19:31 | PC.NURSE ---
Called [facility] to ask about the update for a transfer, transfer pumper responded with they paged the doctor hadn't called back yet. Said they would either send out another page or look up the doctors phone number and give him a phone call
--- NOTE | 2025-01-28 19:34 | PC.NURSE ---
[facility] called back
--- NOTE | 2025-01-28 20:41 | PC.NURSE ---
[facility] was called for transport.
--- NOTE | 2025-01-30 15:14 | PC.NURSE ---
1510hrs- [facility] to contact [facility] times to speak with the nurse taking care of this patient at [facility] facility. After no one answering I decided to fax the Urine culture results.
== END 2025-01-28 21:56 | disposition short-term general hospital (02) ==
PROVIDERS: Physician Assistant; Emergency Provider Emergency Medicine
DX: I48.0 Paroxysmal atrial fibrillation (principal); I50.9 Heart failure, unspecified; N39.0 Urinary tract infection, site not specified
CPT/HCPCS: 71045; 80053; 81001; 83735; 83880; 84436; 84443; 84479; 84484; 85025; 87086; 87088; 87186; 87636; 93005; 96365; 96375; 99285; J0696; J1940; J2405; J3475